=== PATIENT | female | born 1965 | race Caucasian/White ===

== ENCOUNTER → 2020-01-07 08:24 | Outpatient (CLI) | payer OTHER, SELFPAY ==
--- NOTE | 2020-01-07 | DI.US.S_ITS ---
LIMITED ULTRASOUND OF LEFT BREAST: 01/07/2020 CLINICAL: Patient returns today to evaluate a focal asymmetry in the left breast. Comparison is made to exams dated: 01/07/2020 mammogram - [facility], 04/17/2016 mammogram, 04/10/2018 mammogram, and 04/06/2016 mammogram - outside location. Color flow and real-time ultrasound of the left breast 12 o'clock region were performed. Awad scale images of the real-time examination were reviewed. There is a stable benign oval complicated cyst in the left breast at 12 o'clock middle depth. This oval complicated cyst displays posterior acoustic enhancement. IMPRESSION: BENIGN There is no sonographic evidence of malignancy. The stable oval complicated cyst in the left breast is benign. Return to annual mammogram screening schedule is recommended. This exam was interpreted at Station ID: [id number]. Electronically Signed By: Dl Montes De Oca M.D., jr/ludmila:01/07/2020 09:48:26 letter sent: Normal Exam Ultrasound BI-RADS: 2 Benign
--- NOTE | 2020-01-07 | DI.MG.S_ITS ---
BILATERAL DIGITAL DIAGNOSTIC MAMMOGRAM 3D/2D: 01/07/2020 CLINICAL: Follow up of left breast per patient. Comparison is made to exams dated: 04/06/2016 mammogram, 04/17/2016 mammogram, and 04/10/2018 mammogram - outside location. The tissue of both breasts is heterogeneously dense. This may lower the sensitivity of mammography. There is a stable 0.7 cm oval equal density cyst in the left breast at 10 o'clock anterior depth 4 cm from the nipple. No other significant masses, calcifications, or other findings are seen in either breast. IMPRESSION: INCOMPLETE: NEEDS ADDITIONAL IMAGING EVALUATION The stable 0.7 cm oval equal density cyst in the left breast is indeterminate. An ultrasound is recommended. This exam was interpreted at Station ID: [id number]. NOTE: For mammograms, a report in lay terms will be sent to the patient. Approximately 15% of breast malignancies will not be visualized mammographically. In the management of a palpable breast mass, a negative mammogram must not discourage biopsy of a clinically suspicious lesion. Electronically Signed By: Dl Montes De Oca M.D., jr/ludmila:01/07/2020 09:19:26 ACR BI-RADS Category 0: Incomplete [id number]
== END ==
PROVIDERS: PCP Physician Assistant; Referring Provider Physician Assistant; Visit Provider Physician Assistant
DX: R92.8 Other abnormal and inconclusive findings on diagnostic imaging of breast (principal); N60.02 Solitary cyst of left breast
CPT/HCPCS: 76642; 77066; G0279

== ENCOUNTER → 2021-05-04 09:42 | Outpatient (CLI) | payer OTHER, SELFPAY ==
--- NOTE | 2021-05-04 09:44 | DI.RAD.S_ITS ---
PROCEDURE: XR ANKLE RT MIN 3V INDICATIONS: right ankle swelling/pain TECHNIQUE: 3 views of the ankle were acquired. COMPARISON: None. FINDINGS: Bones: Postsurgical changes are seen in 1st and 2nd toes. No ankle fracture or dislocation. Mild tibiotalar joint osteoarthritic changes are seen. Ankle mortise is normally aligned. No suspicious bony lesions. Well-defined prominent plantar calcaneal enthesophyte and small dorsal calcaneal enthesophyte are seen. Soft tissues: Significant lateral ankle soft tissue swelling over lateral malleolus is noted. No tibiotalar joint effusion. Achilles tendon appears normal. IMPRESSION: Significant lateral ankle soft tissue swelling. Mild tibiotalar joint osteoarthritis. Well-defined calcaneal enthesophytes. No fracture or dislocation. Ankle mortise is congruent. Dictated by: Rajat Cedeno M.D. on 05/04/2021 at 11:45 Approved by: Rajat Cedeno M.D. on 05/04/2021 at 11:46
== END ==
PROVIDERS: PCP Family Medicine; Referring Provider Family Medicine; Visit Provider Family Medicine
DX: M25.571 Pain in right ankle and joints of right foot (principal)
CPT/HCPCS: 73610

== ENCOUNTER → 2021-05-09 09:20 | Outpatient (CLI) | payer OTHER, SELFPAY ==
[2021-05-09 11:34] LABS: Add Manual Diff / Slide Review NO; Basophils Absolute Auto 0 /uL (0-100); Basophils Percent Auto 0.6 % (0-2); Eosinophils Absolute Auto 100 /uL (0-450); Eosinophils Percent Auto 2.3 % (2-4); Hematocrit 38.9 % (36-46); Hemoglobin 13.3 g/dL (12.0-16.0); Lymphocytes Absolute Auto 1700 /uL (1100-4500); Lymphocytes Percent Auto 26.8 % (25-40); Mean Corpuscular HGB Conc 34.3 % (30-36); Mean Corpuscular Hemoglobin 33.2 PG (26-34); Mean Corpuscular Volume 96.8 fL (80-100); Monocytes Absolute Auto 400 /uL (0-900); Neutrophils Absolute Auto 4000 /uL (1500-7000); Neutrophils Percent Auto 64.3 % (50-75); Platelet Count 305 X10^3/uL (150-400); Red Blood Cell Count 4.02 X10^6/uL (4.0-5.2); Red Cell Distribution Width 13.4 % (11.6-14.8); White Blood Cell Count 6.2 X10^3/uL (4.5-11.0)
[2021-05-09 12:52] LABS: Alanine Aminotransferase 40 IU/L (<35); Albumin 4.8 g/dL (3.5-5.0); Albumin Globulin Ratio 1.8 (1.0-2.8); Alkaline Phosphatase 79 U/L (38-126); Aspartate Aminotransferase 33 IU/L (14-36); BUN Creatinine Ratio 15.6 (6-22); Bilirubin Total 0.4 mg/dL (0.2-1.3); Blood Urea Nitrogen 12 mg/dL (7-17); Calcium 9.4 mg/dL (8.4-10.2); Carbon Dioxide 27 mmol/L (22-32); Chloride 105 mmol/L (98-107); Cholesterol 223 mg/dL (140-199); Estimated Glomerular Filt Rate > 60.0 mL/min (>60); Globulin 2.6 g/dL (1.7-4.1); Glucose 91 mg/dL (70-100); HDL Cholesterol 68 mg/dL (40-60); HEMOLYSIS < 15 (0-50); LDL Cholesterol Calculated 127 mg/dL (<100); Potassium 4.9 mmol/L (3.4-5.1); Sodium 140 mmol/L (137-145); Total Protein 7.4 g/dL (6.3-8.2); Triglycerides 138 mg/dL (35-150)
[2021-05-09 13:29] LABS: TSH w/ Reflex to FT4 2.22 uIU/mL (0.47-4.68)
[2021-05-09 15:17] LABS: Vitamin D 25 Hydroxy (D3) 38.8 ng/mL (30.0-100.0)
== END ==
PROVIDERS: PCP Family Medicine; Referring Provider Family Medicine; Visit Provider Family Medicine
DX: E55.9 Vitamin D deficiency, unspecified (principal); E78.00 Pure hypercholesterolemia, unspecified; Z68.41 Body mass index [BMI] 40.0-44.9, adult
CPT/HCPCS: 36415; 80053; 80061; 82306; 84443; 85025

== ENCOUNTER → 2021-05-17 08:42 | Outpatient (CLI) | payer OTHER, SELFPAY ==
--- NOTE | 2021-05-17 08:44 | DI.MRI.S_ITS ---
PROCEDURE: MR ANKLE RT WO CON INDICATIONS: chronic right ankle swelling TECHNIQUE: Noncontrast sagittal T1 spin echo and T2 fast spin echo with fat saturation, axial proton density fast spin echo and T2 fast spin echo with fat saturation, coronal T1 spin echo and T2 fast spin echo with fat saturation through the ankle/hindfoot. COMPARISON: [facility], CR, XR ANKLE RT MIN 3V, 05/04/2021, 9:55. FINDINGS: Image quality: Excellent. Bones and joints: No bone marrow contusions or fractures. A nonedematous os trigonum is noted. No hindfoot coalitions. No osteochondral injuries of the talar dome. Mild focal subchondral cystic changes in the distal tibial plafond. Moderate degenerative changes in the midfoot involving the 2nd and 3rd tarsometatarsal joints. There is a moderate nonedematous plantar calcaneal enthesophyte. Medial structures: The deep and superficial layers of the deltoid ligament appear intact. The spring ligament components are intact. There is mild posterior tibialis tenosynovitis. The flexor hallucis longus and flexor digitorum longus tendons are intact. The posterior tibial neurovascular bundle appears normal within the tarsal tunnel, without extrinsic mass effect. Lateral structures: There is full-thickness tearing of the anterior talofibular ligament without surrounding edema. The calcaneofibular ligament appears thickened with indistinct margins. The posterior talofibular ligament is grossly intact. The anterior and posterior tibiofibular ligaments appear intact. Moderate tendinosis of the peroneus brevis and longus tendons is seen with mild superimposed tenosynovitis. There is partial effacement of the normal fat in the rotator interval with mild lateral cystic changes. Anterior structures: The tibialis anterior, extensor hallucis longus, and extensor digitorum longus tendons appear intact. The dorsal talonavicular ligament appears intact. Posterior and plantar structures: Achilles tendon demonstrates thickening and tendinosis. Moderate thickening of the proximal plantar fascia is seen without surrounding edema. No abductor digiti quinti muscle atrophy to suggest Guerrero neuropathy. IMPRESSION: 1. Chronic complete tearing of the anterior talofibular ligament. Chronic grade 2-3 sprain of the calcaneofibular ligament. 2. 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 3. Mild tenosynovitis of the posterior tibialis tendon. 4. Mild to moderate Achilles tendinosis. 5. Moderate chronic proximal plantar fasciitis. 6. Scattered degenerative changes are most prominent at the 2nd and 3rd tarsometatarsal joints. Dictated by: aRfy Roach M.D. on 05/17/2021 at 9:59 Approved by: Rafy Roach M.D. on 05/17/2021 at 10:11
== END ==
PROVIDERS: PCP Family Medicine; Referring Provider Family Medicine; Visit Provider Family Medicine
DX: S93.411A Sprain of calcaneofibular ligament of right ankle, initial encounter (principal); S93.491A Sprain of other ligament of right ankle, initial encounter; M72.2 Plantar fascial fibromatosis; M65.871 Other synovitis and tenosynovitis, right ankle and foot; M25.571 Pain in right ankle and joints of right foot; M25.471 Effusion, right ankle; X58.XXXA Exposure to other specified factors, initial encounter
CPT/HCPCS: 73721

== ENCOUNTER → 2021-06-13 11:06 | Outpatient (CLI) | payer OTHER, SELFPAY ==
--- NOTE | 2021-06-13 11:08 | DI.MG.S_ITS ---
BILATERAL DIGITAL SCREENING MAMMOGRAM 3D/2D WITH CAD: 06/13/2021 CLINICAL: Routine screening. Comparison is made to exams dated: 01/07/2020 mammogram - [facility], 04/10/2018 mammogram, and 04/17/2016 mammogram - outside location. There are scattered fibroglandular elements in both breasts. Current study was also evaluated with a Computer Aided Detection (CAD) system. No significant masses, calcifications, or other findings are seen in either breast. There has been no significant interval change. IMPRESSION: NEGATIVE There is no mammographic evidence of malignancy. A 1 year screening mammogram is recommended. This exam was interpreted at Station ID: [id number]. NOTE: For mammograms, a report in lay terms will be sent to the patient. Approximately 15% of breast malignancies will not be visualized mammographically. In the management of a palpable breast mass, a negative mammogram must not discourage biopsy of a clinically suspicious lesion. Electronically Signed By: Kong guerin/ludmila:06/13/2021 13:28:05 letter sent: Normal Exam ACR BI-RADS Category 1: Negative [id number]
== END ==
PROVIDERS: PCP Family Medicine; Referring Provider Family Medicine; Visit Provider Family Medicine
DX: Z12.31 Encounter for screening mammogram for malignant neoplasm of breast (principal)
CPT/HCPCS: 77063; 77067